=== PATIENT | female | born 1950 | race African-American/Black ===

== ENCOUNTER 2023-03-15 13:01 | Inpatient (IN) | payer OTHER ==
[2023-03-15] MEDS ORDERED: FAMOTIDINE 20 MG/50 ML IVPB 20 MG/50 ML MG IVPB ONE ×2 (13:41→14:18)
[2023-03-15] MEDS ORDERED: SODIUM CHLORIDE 0.9% 500 ML INFUS.BAG IV ONE ×3 (13:41→16:18)
[2023-03-15] MEDS ORDERED: ACETAMINOPHEN 1000 MG/100 ML BAG IVPB ONE (13:41)
[2023-03-15] MEDS ORDERED: fentaNYL CITRATE/PF 1,000 MCG/20 ML AMPUL IVPUSH ONE (13:51)
[2023-03-15] MEDS ORDERED: FENTANYL CITRATE/PF 50 MCG/ML VIAL ONE (14:17)
[2023-03-15] MEDS ORDERED: ACETAMINOPHEN INJECTION 100 ML IVPB ONE (14:17)
[2023-03-15] MEDS ORDERED: CALCIUM GLUCONATE 10% - 1,000 MG/10 ML VIAL IVPUSH ONE (14:20)
[2023-03-15] MEDS ORDERED: CALCIUM GLUCONATE 10% - 1,000 MG/10 ML VIAL ONE (14:21)
[2023-03-15 14:30] LABS: EPI CELLS 7 /uL (0-25.1); HYALINE CASTS 0 /uL (0-3.1); URINE APPEARANCE TURBID; URINE BACTERIA >9,000 /uL (0-1359); URINE BILIRUBIN NEGATIVE (NEGATIVE); URINE COLOR YELLOW; URINE GLUCOSE (UA) NEGATIVE (NEGATIVE); URINE KETONE NEGATIVE (NEGATIVE); URINE LEUK ESTERASE 3+ (NEGATIVE); URINE NITRITE POSITIVE (NEGATIVE); URINE PROTEIN 2+ (NEGATIVE); URINE RBC 132 /uL (0-23.9); URINE UROBILINOGEN 0.2 mg/dL (0.2-1.0); URINE WBC 10553 /uL (0-25.8)
[2023-03-15 14:41] LABS: BASO % 0.6 % (0-2.0); EOS % 0.3 % (0-4.5); HEMATOCRIT 31.7 % (32.4-45.2); LYMPH % 28.4 % (8-40); MCH 22.8 pg (25.7-33.7); MCHC 31.7 g/dl (32.0-36.0); MEAN CELL VOLUME 71.9 fl (80-96); MEAN PLT VOLUME 9.2 fl (7.5-11.1); MONO % 10.1 % (3.8-10.2); NEUT % 60.6 % (42.8-82.8); PLATELET COUNT 285 10^3/uL (134-434); RDW 17.5 % (11.6-15.6)
[2023-03-15 14:45] LABS: INR 1.18 (0.83-1.09); PROTHROMBIN TIME (PATIENT) 13.7 SEC (9.7-13.0)
[2023-03-15 14:48] LABS: ACTIVATED PTT 27.3 SECONDS (25.2-36.5)
[2023-03-15] MEDS ORDERED: CEFTRIAXONE 1 GM in DEXTROSE 5%-WATER - 100 ML IVPB ONE (14:53)
[2023-03-15 15:00] LABS: CHLORIDE 115 mmol/L (98-107); SODIUM 136 mmol/L (136-145)
[2023-03-15 15:02] LABS: ALBUMIN 3.2 g/dl (3.4-5.0); BLOOD UREA NITROGEN 58.1 mg/dL (7-18); CALCIUM 10.1 mg/dL (8.5-10.1); CO2 17 mmol/L (21-32); GLUCOSE,RANDOM 90 mg/dL (74-106); LIPASE 630 U/L (73-393)
[2023-03-15 15:05] LABS: CREATININE 4.3 mg/dL (0.55-1.3); SGOT/AST 48 U/L (15-37); SGPT/ALT 40 U/L (13-61)
[2023-03-15 15:07] LABS: BILIRUBIN,TOTAL 0.4 mg/dL (0.2-1); TOT PROT 8.3 g/dl (6.4-8.2)
[2023-03-15 15:08] LABS: ALK PHOS 60 U/L (45-117)
[2023-03-15 15:11] LABS: ANION GAP 3 MMOL/L (8-16); POTASSIUM 8.9 mmol/L (3.5-5.1)
[2023-03-15] MEDS ORDERED: INSULIN REGULAR HUMAN 100 UNITS/ML *VIAL IVPUSH ONE ×2 (15:14→23:27)
[2023-03-15] MEDS ORDERED: DEXTROSE 50%-WATER - 25 GM/50 ML VIAL IVPUSH ONE ×4 (15:15→23:28)
[2023-03-15] MEDS ORDERED: ALBUTEROL SO4 0.083% IH SOL 2.5 MG/3 ML VIAL.NEB. NEB ONE (15:16)
[2023-03-15] MEDS ORDERED: CEFTRIAXONE 1 GM/50 ML BAG ONE (15:17)
[2023-03-15] MEDS ORDERED: SODIUM ZIRCONIUM CYCLOSILICATE (LOKELMA) 5 GM PACKET PO ONE (15:31)
[2023-03-15 15:32] LABS: MAGNESIUM 2.2 mg/dL (1.8-2.4)
[2023-03-15] MEDS: ALBUTEROL SO4 0.083% IH SOL 2.5 MG/3 ML VIAL.NEB. NEB SCH ×2 (16:01→16:12)
[2023-03-15] MEDS ORDERED: DEXTROSE 50%-WATER 25 GM/50 ML DISP.SYRIN ONE ×3 (16:07→23:41)
[2023-03-15] MEDS ORDERED: SODIUM BICARBONATE 8.4% 50 MEQ/50 ML DISP.SYRIN IVPUSH ONE ×3 (16:17→23:27)
[2023-03-15] MEDS ORDERED: SODIUM BICARBONATE 8.4% 50 MEQ/50 ML DISP.SYRIN ONE ×2 (16:20→19:35)
[2023-03-15] MEDS ORDERED: SODIUM ZIRCONIUM CYCLOSILICATE (LOKELMA) 10 GM PACKET ONE ×2 (16:20→19:31)
[2023-03-15] MEDS ORDERED: SODIUM CHLORIDE 1,000 ML IV SCH (18:00)
[2023-03-15 18:17] LABS: CHLORIDE 119 mmol/L (98-107); SODIUM 141 mmol/L (136-145)
[2023-03-15 18:18] LABS: CALCIUM 8.9 mg/dL (8.5-10.1)
[2023-03-15 18:19] LABS: BLOOD UREA NITROGEN 55.1 mg/dL (7-18); CO2 19 mmol/L (21-32)
[2023-03-15 18:22] LABS: CREATININE 3.8 mg/dL (0.55-1.3)
[2023-03-15] MEDS ORDERED: SODIUM CHLORIDE 0.45% 1,000 ML IV SCH (18:30)
[2023-03-15 18:32] LABS: ANION GAP 3 MMOL/L (8-16); GLUCOSE,RANDOM 45 mg/dL (74-106); POTASSIUM 6.8 mmol/L (3.5-5.1)
[2023-03-15] MEDS ORDERED: DEXTROSE 50%-WATER 25 GM/50 ML DISP.SYRIN IVPUSH ONE (18:34)
[2023-03-15] MEDS ORDERED: SODIUM CHLORIDE 500 ML IV STA (18:40)
[2023-03-15] MEDS ORDERED: CALCIUM GLUCONATE IN NACL 1 GM/50 ML BAG IVPB ONE (18:40)
[2023-03-15] MEDS ORDERED: ALBUTEROL SO4 HFA INHALER IH PRN (19:02)
[2023-03-15] MEDS ORDERED: SODIUM BICARBONATE 8.4% 50 MEQ/50 ML VIAL ONE (19:31)
[2023-03-15] MEDS ORDERED: CALCIUM CHLORIDE 1 GM/10 ML *DISP.SYRIN ONE ×2 (19:32→19:36)
[2023-03-15] MEDS: PANTOPRAZOLE 40 MG TABLET PO SCH (19:45)
[2023-03-15] MEDS: DEXTROSE 5%-0.45% SALINE 1,000 ML IV SCH (19:46)
[2023-03-15] MEDS: SODIUM ZIRCONIUM CYCLOSILICATE (LOKELMA) 5 GM PACKET PO SCH ×2 (19:46→21:04)
[2023-03-15] MEDS: HEPARIN NA (PORCINE) 5,000 UNITS/ML 1ML VIAL SQ SCH (21:03)
[2023-03-15] MEDS: ATORVASTATIN CA 10 MG TABLET (FP) PO SCH (21:09)
[2023-03-15] MEDS: MUPIROCIN 2% TOPICAL OINTMENT FOR DECOLONIZATION NS SCH (22:44)
[2023-03-15] MEDS: CHLORHEXIDINE GLUCONATE 4% CLEANSER FOR DECOLONIZATION TP SCH (22:44)
[2023-03-15 23:10] LABS: CHLORIDE 120 mmol/L (98-107); SODIUM 144 mmol/L (136-145)
[2023-03-15 23:11] LABS: BLOOD UREA NITROGEN 47.5 mg/dL (7-18); CALCIUM 9.2 mg/dL (8.5-10.1); CO2 18 mmol/L (21-32)
[2023-03-15 23:12] LABS: GLUCOSE,RANDOM 159 mg/dL (74-106)
[2023-03-15 23:15] LABS: CREATININE 3.3 mg/dL (0.55-1.3)
[2023-03-15 23:25] LABS: ANION GAP 6 MMOL/L (8-16); POTASSIUM 6.3 mmol/L (3.5-5.1)
[2023-03-16] MEDS ORDERED: DEXTROSE 50%-WATER - 25 GM/50 ML VIAL IVPUSH PRN (00:35)
[2023-03-16 02:20] LABS: POTASSIUM 4.9 mmol/L (3.5-5.1)
[2023-03-16 02:23] LABS: MAGNESIUM 1.7 mg/dL (1.8-2.4)
[2023-03-16 02:26] LABS: CREATININE 2.9 mg/dL (0.55-1.3)
[2023-03-16 02:27] LABS: BILIRUBIN,TOTAL 0.3 mg/dL (0.2-1)
[2023-03-16 03:14] LABS: ALBUMIN 2.1 g/dl (3.4-5.0); TOT PROT 5.6 g/dl (6.4-8.2)
[2023-03-16] MEDS: HEPARIN NA (PORCINE) 5,000 UNITS/ML 1ML VIAL SQ SCH ×2 (05:54→14:11)
[2023-03-16] MEDS ORDERED: MAGNESIUM 1GM/D5W - 1 GM/100 ML IVPB IVPB ONE (06:25)
[2023-03-16 07:37] LABS: BASO % 0.5 % (0-2.0); EOS % 3.6 % (0-4.5); HEMATOCRIT 27.1 % (32.4-45.2); HEMOGLOBIN 8.3 GM/dL (10.7-15.3); LYMPH % 23.3 % (8-40); MCH 22.7 pg (25.7-33.7); MCHC 30.7 g/dl (32.0-36.0); MEAN CELL VOLUME 73.9 fl (80-96); MEAN PLT VOLUME 9.8 fl (7.5-11.1); MONO % 10.4 % (3.8-10.2); NEUT % 62.2 % (42.8-82.8); PLATELET COUNT 194 10^3/uL (134-434); RBC 3.67 M/mm3 (3.60-5.2); RDW 17.2 % (11.6-15.6)
[2023-03-16] MEDS ORDERED: MAGNESIUM SULF 50% (8.12 MEQ/2 ML-1 GM VIAL) IVPB ONE ×2 (08:20→12:15)
[2023-03-16] MEDS: EZETIMIBE 10 MG TABLET (FP) PO SCH (09:10)
[2023-03-16] MEDS: CEFTRIAXONE 1 GM in DEXTROSE 5%-WATER - 50 ML IVPB SCH (09:10)
[2023-03-16] MEDS: PANTOPRAZOLE 40 MG TABLET PO SCH (09:10)
[2023-03-16 10:00] LABS: POTASSIUM 5.9 mmol/L (3.5-5.1)
[2023-03-16 10:01] LABS: CALCIUM 8.7 mg/dL (8.5-10.1); MAGNESIUM 1.9 mg/dL (1.8-2.4)
[2023-03-16 10:02] LABS: BLOOD UREA NITROGEN 40.3 mg/dL (7-18)
[2023-03-16 10:05] LABS: CREATININE 2.7 mg/dL (0.55-1.3)
[2023-03-16] MEDS: MUPIROCIN 2% TOPICAL OINTMENT FOR DECOLONIZATION NS SCH ×2 (12:29→21:01)
[2023-03-16] MEDS ORDERED: SODIUM ZIRCONIUM CYCLOSILICATE (LOKELMA) 5 GM PACKET PO SCH (12:45)
[2023-03-16] MEDS ORDERED: SODIUM CHLORIDE 500 ML IV STA (13:10)
[2023-03-16] MEDS: SODIUM ZIRCONIUM CYCLOSILICATE (LOKELMA) 5 GM PACKET PO SCH ×2 (13:47→21:01)
[2023-03-16 18:12] LABS: HEMATOCRIT 24.8 % (32.4-45.2); HEMOGLOBIN 7.7 GM/dL (10.7-15.3); MCH 22.7 pg (25.7-33.7); MCHC 30.8 g/dl (32.0-36.0); MEAN CELL VOLUME 73.5 fl (80-96); MEAN PLT VOLUME 9.6 fl (7.5-11.1); PLATELET COUNT 193 10^3/uL (134-434); RBC 3.38 M/mm3 (3.60-5.2); RDW 17.1 % (11.6-15.6); WHITE BLOOD COUNT 8.8 K/mm3 (4.0-10.0)
[2023-03-16] MEDS: DEXTROSE 5%-0.45% SALINE 1,000 ML IV SCH (18:24)
[2023-03-16 18:29] LABS: POTASSIUM 5.4 mmol/L (3.5-5.1)
[2023-03-16 18:30] LABS: CALCIUM 8.3 mg/dL (8.5-10.1)
[2023-03-16 18:31] LABS: BLOOD UREA NITROGEN 33.2 mg/dL (7-18)
[2023-03-16 18:34] LABS: CREATININE 2.4 mg/dL (0.55-1.3)
[2023-03-16] MEDS: ATORVASTATIN CA 10 MG TABLET (FP) PO SCH (21:01)
[2023-03-16] MEDS: CHLORHEXIDINE GLUCONATE 4% CLEANSER FOR DECOLONIZATION TP SCH (21:01)
[2023-03-17 07:38] LABS: BASO % 1.1 % (0-2.0); HEMATOCRIT 23.3 % (32.4-45.2); HEMOGLOBIN 7.3 GM/dL (10.7-15.3); MCH 22.8 pg (25.7-33.7); MCHC 31.2 g/dl (32.0-36.0); MEAN CELL VOLUME 73.3 fl (80-96); MEAN PLT VOLUME 9.7 fl (7.5-11.1); MONO % 7.8 % (3.8-10.2); NEUT % 56.1 % (42.8-82.8); PLATELET COUNT 174 10^3/uL (134-434); RBC 3.19 M/mm3 (3.60-5.2); RDW 16.7 % (11.6-15.6); WHITE BLOOD COUNT 7.7 K/mm3 (4.0-10.0)
[2023-03-17 08:03] LABS: POTASSIUM 4.8 mmol/L (3.5-5.1)
[2023-03-17 08:05] LABS: BLOOD UREA NITROGEN 24.4 mg/dL (7-18); CALCIUM 7.9 mg/dL (8.5-10.1); MAGNESIUM 1.8 mg/dL (1.8-2.4)
[2023-03-17 08:08] LABS: CREATININE 2.1 mg/dL (0.55-1.3); PHOSPHOROUS 3.6 mg/dL (2.5-4.9)
[2023-03-17 08:09] LABS: BILIRUBIN,TOTAL 0.2 mg/dL (0.2-1)
[2023-03-17 08:11] LABS: TOT PROT 5.5 g/dl (6.4-8.2)
[2023-03-17] MEDS: MUPIROCIN 2% TOPICAL OINTMENT FOR DECOLONIZATION NS SCH (09:03)
[2023-03-17] MEDS: PANTOPRAZOLE 40 MG TABLET PO SCH (09:03)
[2023-03-17] MEDS: EZETIMIBE 10 MG TABLET (FP) PO SCH (09:03)
[2023-03-17] MEDS: SODIUM ZIRCONIUM CYCLOSILICATE (LOKELMA) 5 GM PACKET PO SCH ×2 (09:03→21:33)
[2023-03-17] MEDS: CEFTRIAXONE 1 GM in DEXTROSE 5%-WATER - 50 ML IVPB SCH (09:03)
[2023-03-17] MEDS: POLYETHYLENE GLYCOL (HEALTHYLAX) 3350 17 GM PACKET PO SCH ×2 (09:54→21:33)
[2023-03-17] MEDS: ARTIFICIAL TEARS (POLYVINYL ALCOHOL) OPTH DROPS OU SCH ×2 (14:32→21:42)
[2023-03-17] MEDS: CARTEOLOL HCL OU SCH ×2 (14:38→21:35)
[2023-03-17 14:42] VITALS: BMI 30.4
[2023-03-17] MEDS ORDERED: ALBUTEROL SO4 HFA INHALER IH PRN (18:23)
[2023-03-17] MEDS: HEPARIN NA (PORCINE) 5,000 UNITS/ML 1ML VIAL SQ SCH ×2 (21:33→23:55)
[2023-03-17] MEDS: ATORVASTATIN CA 10 MG TABLET (FP) PO SCH (21:33)
[2023-03-17] MEDS: SENNOSIDES 8.6MG TABLET (FP) PO SCH (21:33)
[2023-03-17] MEDS: DEXTROSE 5%-0.45% SALINE 1,000 ML IV SCH (21:34)
[2023-03-17] MEDS ORDERED: CHLORHEXIDINE GLUCONATE 4% CLEANSER FOR DECOLONIZATION TP SCH (22:00)
[2023-03-17] MEDS ORDERED: MUPIROCIN 2% TOPICAL OINTMENT FOR DECOLONIZATION NS SCH (22:00)
[2023-03-18] MEDS: HEPARIN NA (PORCINE) 5,000 UNITS/ML 1ML VIAL SQ SCH ×4 (05:14→22:00)
[2023-03-18] MEDS: SODIUM ZIRCONIUM CYCLOSILICATE (LOKELMA) 5 GM PACKET PO SCH (09:26)
[2023-03-18] MEDS: PANTOPRAZOLE 40 MG TABLET PO SCH (09:26)
[2023-03-18] MEDS: POLYETHYLENE GLYCOL (HEALTHYLAX) 3350 17 GM PACKET PO SCH ×2 (09:26→21:32)
[2023-03-18] MEDS: EZETIMIBE 10 MG TABLET (FP) PO SCH (09:26)
[2023-03-18 09:41] LABS: HEMATOCRIT 23.2 % (32.4-45.2); HEMOGLOBIN 7.3 GM/dL (10.7-15.3); MCHC 31.6 g/dl (32.0-36.0); MEAN CELL VOLUME 72.9 fl (80-96); MEAN PLT VOLUME 8.6 fl (7.5-11.1); PLATELET COUNT 159 10^3/uL (134-434); RBC 3.18 M/mm3 (3.60-5.2); RDW 16.8 % (11.6-15.6); WHITE BLOOD COUNT 8.2 K/mm3 (4.0-10.0)
[2023-03-18] MEDS: CEFTRIAXONE 1 GM in DEXTROSE 5%-WATER - 50 ML IVPB SCH (09:53)
[2023-03-18] MEDS: CARTEOLOL HCL OU SCH ×2 (09:54→21:30)
[2023-03-18] MEDS: ARTIFICIAL TEARS (POLYVINYL ALCOHOL) OPTH DROPS OU SCH ×2 (09:56→21:29)
[2023-03-18 10:03] LABS: POTASSIUM 3.9 mmol/L (3.5-5.1)
[2023-03-18 10:08] LABS: CALCIUM 7.6 mg/dL (8.5-10.1)
[2023-03-18 10:10] LABS: ALBUMIN 2.1 g/dl (3.4-5.0); BLOOD UREA NITROGEN 20.1 mg/dL (7-18); CREATININE 1.7 mg/dL (0.55-1.3); MAGNESIUM 1.6 mg/dL (1.8-2.4)
[2023-03-18 10:12] LABS: BILIRUBIN,TOTAL 0.2 mg/dL (0.2-1); TOT PROT 5.7 g/dl (6.4-8.2)
[2023-03-18 10:16] LABS: ANISOCYTOSIS 3+; MACROCYTOSIS 0
[2023-03-18] MEDS ORDERED: MAGNESIUM 2GM/50ML STERILE WATER IVPB IVPB ONE (15:07)
[2023-03-18] MEDS: DEXTROSE 5%-0.45% SALINE 1,000 ML IV SCH (17:14)
[2023-03-18] MEDS: ATORVASTATIN CA 10 MG TABLET (FP) PO SCH (21:30)
[2023-03-18] MEDS: SENNOSIDES 8.6MG TABLET (FP) PO SCH (21:31)
[2023-03-18] MEDS: ACETAMINOPHEN 325 MG TABLET (FP) PO PRN (21:31)
[2023-03-19] MEDS: DEXTROSE 5%-0.45% SALINE 1,000 ML IV SCH (05:59)
[2023-03-19] MEDS: HEPARIN NA (PORCINE) 5,000 UNITS/ML 1ML VIAL SQ SCH ×3 (06:00→21:22)
[2023-03-19] MEDS: CEFTRIAXONE 1 GM in DEXTROSE 5%-WATER - 50 ML IVPB SCH (09:32)
[2023-03-19] MEDS: POLYETHYLENE GLYCOL (HEALTHYLAX) 3350 17 GM PACKET PO SCH ×2 (09:37→21:20)
[2023-03-19] MEDS: EZETIMIBE 10 MG TABLET (FP) PO SCH (09:39)
[2023-03-19] MEDS: ARTIFICIAL TEARS (POLYVINYL ALCOHOL) OPTH DROPS OU SCH ×2 (09:40→21:21)
[2023-03-19] MEDS: PANTOPRAZOLE 40 MG TABLET PO SCH (09:40)
[2023-03-19] MEDS: CARTEOLOL HCL OU SCH ×2 (09:41→21:21)
[2023-03-19] MEDS: ACETAMINOPHEN 325 MG TABLET (FP) PO PRN (16:37)
[2023-03-19] MEDS: SENNOSIDES 8.6MG TABLET (FP) PO SCH ×2 (21:19→21:23)
[2023-03-19] MEDS: ATORVASTATIN CA 10 MG TABLET (FP) PO SCH (21:19)
[2023-03-20] MEDS: ACETAMINOPHEN 325 MG TABLET (FP) PO PRN ×2 (03:02→18:54)
[2023-03-20] MEDS: DEXTROSE 5%-0.45% SALINE 1,000 ML IV SCH ×4 (03:40→18:32)
[2023-03-20] MEDS: HEPARIN NA (PORCINE) 5,000 UNITS/ML 1ML VIAL SQ SCH ×3 (06:44→21:17)
[2023-03-20] MEDS: POLYETHYLENE GLYCOL (HEALTHYLAX) 3350 17 GM PACKET PO SCH ×2 (09:25→21:18)
[2023-03-20] MEDS: EZETIMIBE 10 MG TABLET (FP) PO SCH (09:26)
[2023-03-20] MEDS: PANTOPRAZOLE 40 MG TABLET PO SCH (09:26)
[2023-03-20] MEDS: ARTIFICIAL TEARS (POLYVINYL ALCOHOL) OPTH DROPS OU SCH ×2 (09:27→21:20)
[2023-03-20] MEDS: CARTEOLOL HCL OU SCH ×2 (09:28→21:21)
[2023-03-20] MEDS: CEFTRIAXONE 1 GM in DEXTROSE 5%-WATER - 50 ML IVPB SCH (10:40)
[2023-03-20 10:49] LABS: BASO % 0.7 % (0-2.0); EOS % 1.8 % (0-4.5); HEMATOCRIT 25.4 % (32.4-45.2); HEMOGLOBIN 8.1 GM/dL (10.7-15.3); LYMPH % 30.8 % (8-40); MCH 22.9 pg (25.7-33.7); MCHC 31.9 g/dl (32.0-36.0); MEAN CELL VOLUME 71.9 fl (80-96); MONO % 7.9 % (3.8-10.2); NEUT % 58.8 % (42.8-82.8); PLATELET COUNT 186 10^3/uL (134-434); RBC 3.53 M/mm3 (3.60-5.2); WHITE BLOOD COUNT 9.3 K/mm3 (4.0-10.0)
[2023-03-20 11:34] LABS: CALCIUM 8.3 mg/dL (8.5-10.1)
[2023-03-20 11:35] LABS: BLOOD UREA NITROGEN 24.1 mg/dL (7-18)
[2023-03-20 11:38] LABS: CREATININE 1.4 mg/dL (0.55-1.3)
[2023-03-20] MEDS: ATORVASTATIN CA 10 MG TABLET (FP) PO SCH (21:17)
[2023-03-20] MEDS: SENNOSIDES 8.6MG TABLET (FP) PO SCH (21:23)
[2023-03-21] MEDS: HEPARIN NA (PORCINE) 5,000 UNITS/ML 1ML VIAL SQ SCH ×2 (06:51→14:31)
[2023-03-21 07:29] VITALS: RESP 18
[2023-03-21] MEDS: CEFTRIAXONE 1 GM in DEXTROSE 5%-WATER - 50 ML IVPB SCH (09:02)
[2023-03-21] MEDS: DEXTROSE 5%-0.45% SALINE 1,000 ML IV SCH (09:02)
[2023-03-21] MEDS: EZETIMIBE 10 MG TABLET (FP) PO SCH (09:03)
[2023-03-21] MEDS: POLYETHYLENE GLYCOL (HEALTHYLAX) 3350 17 GM PACKET PO SCH (09:03)
[2023-03-21] MEDS: PANTOPRAZOLE 40 MG TABLET PO SCH (09:03)
[2023-03-21] MEDS: ARTIFICIAL TEARS (POLYVINYL ALCOHOL) OPTH DROPS OU SCH (09:05)
[2023-03-21] MEDS: CARTEOLOL HCL OU SCH (09:05)
[2023-03-21 10:53] LABS: HEMATOCRIT 22.9 % (32.4-45.2); HEMOGLOBIN 7.3 GM/dL (10.7-15.3); MCH 22.8 pg (25.7-33.7); MCHC 31.8 g/dl (32.0-36.0); MEAN CELL VOLUME 71.7 fl (80-96); MEAN PLT VOLUME 8.9 fl (7.5-11.1); PLATELET COUNT 180 10^3/uL (134-434); RBC 3.19 M/mm3 (3.60-5.2); RDW 16.9 % (11.6-15.6); WHITE BLOOD COUNT 7.6 K/mm3 (4.0-10.0)
[2023-03-21 11:19] LABS: POTASSIUM 3.5 mmol/L (3.5-5.1)
[2023-03-21 11:32] LABS: BLOOD UREA NITROGEN 18.5 mg/dL (7-18); CALCIUM 8.1 mg/dL (8.5-10.1)
[2023-03-21 11:35] LABS: CREATININE 1.2 mg/dL (0.55-1.3)
[2023-03-21] MEDS ORDERED: IRON SUCROSE INJECTION 200 MG in SODIUM CHLORIDE 90 ML IVPB ONE (13:30)
[2023-03-21 14:41] VITALS: BP 118/56; PULSE 80; TEMP 98.4
[2023-03-21] MEDS ORDERED: AMOX TR/POT CLAV 875MG/125MG TABLETS (FP) PO SCH (17:30)
[2023-03-21 23:06] LABS: ANTIGLOMERULAR BASEMENT MEN.AB <0.2 units (0.0-0.9)
[2023-03-22 16:08] LABS: ATYPICAL pANCA <1:20 titer (Neg:<1:20); C-ANCA <1:20 titer (Neg:<1:20)
== END 2023-03-21 16:30 | disposition home or self-care (01) | DRG 699 ==
LOC: JER 13:01 → JERBED 15:15 → JICU 19:56 → J6S 03-17 18:06
PROVIDERS: ADMIT Internal Medicine; ATTEND Internal Medicine
DX: N13.9 Obstructive and reflux uropathy, unspecified (principal); N17.9 Acute kidney failure, unspecified; N39.0 Urinary tract infection, site not specified; E87.5 Hyperkalemia; I12.9 Hypertensive chronic kidney disease with stage 1 through stage 4 chronic kidney disease, or unspecified chronic kidney disease; N18.9 Chronic kidney disease, unspecified; D64.9 Anemia, unspecified; E78.5 Hyperlipidemia, unspecified; R73.03 Prediabetes; R33.9 Retention of urine, unspecified; K37 Unspecified appendicitis; K59.00 Constipation, unspecified
CPT/HCPCS: 0241U-QW; 36415; 74176-TC; 80048; 80053; 81003; 82306; 82607; 82728; 82746; 82962; 83036; 83516; 83520; 83540; 83550; 83605; 83690; 83735; 84100; 84155; 84165; 84425; 84443; 84466; 84484; 85025; 85027; 85610; 85730; 86038; 86225; 86256; 86850; 86900; 86901; 87086; 87186; 93005; 93010; 97116-GP; 97162-GP; 99291; J1644; J1756